=== PATIENT | male | born 1960 | race Two or more races ===

== ENCOUNTER 2018-05-21 18:50 | Inpatient (IN) | payer MEDICARE ==
[~2018-05-21] VITALS: Ht 175.3 cm; Wt 86.4 kg
[2018-05-21] MEDS ORDERED: LISINOPRIL-HCT1 EAC8 PO (18:55)
[2018-05-21] MEDS ORDERED: AMOXICILLIN500 M1 PO (18:56)
[2018-05-21] MEDS ORDERED: HUMULIN 70100 UNIT/1 SC (18:57)
[2018-05-21] MEDS ORDERED: NORVASC5 MG PO (18:57)
--- NOTE | 2018-05-21 19:07 | NUR ---
PT ARRIVED WITH UNIT OF BLOOD INFUSING THAT WAS INITIATED PRIOR TO TRANSPORT. UNIT COMPLETE AT THIS TIME. NS AT O INFUSING.
[2018-05-21 20:00] VITALS: BP 152/72
[2018-05-21] MEDS ORDERED: ZOCOR40 MG PO (20:45)
[2018-05-21] MEDS ORDERED: COREG12.5 MG PO (20:46)
[2018-05-21] MEDS ORDERED: PREVACID30 MG PO (20:46)
[2018-05-21] MEDS ORDERED: CLARITHROMYCIN500 M1 PO (20:47)
[2018-05-21 20:59] LABS: ALBUMIN 2.6 g/dL (3.4-5.0); ANION GAP 24.7 mmol/L (8-16); BILIRUBIN - TOTAL 0.24 mg/dL (0.2-1.3); CARBON DIOXIDE 16.8 mmol/L (21.0-32.0); CREATININE - SERUM 10.9 mg/dL (0.6-1.3); POTASSIUM - SERUM 5.5 mmol/L (3.5-5.1)
[2018-05-21 21:03] LABS: BASOPHILS 0.3 % (0-2); EOSINOPHILS 4.5 % (0-7); HEMATOCRIT 27.4 % (42.0-54.0); HEMOGLOBIN 8.6 g/dL (13.5-17.5); IMMATURE GRANULOCYTES 0.3 % (0-5); LYMPHOCYTES 13.1 % (15-50); MCH 28.4 pg (26.0-34.0); MCHC 31.4 g/dL (31.0-37.0); MCV 90.4 fL (80.0-100.0); MEAN PLATELET VOLUME 11.7 fL (7.4-10.4); MONOCYTES 5.8 % (2-11); PLATELET COUNT 129 10x3/uL (130-400); RBC 3.03 10x6/uL (4.20-6.10); RDW 14.6 % (11.5-14.5); WBC 6.7 10x3/uL (4.8-10.8)
[2018-05-21 21:07] LABS: CALCIUM 5.7 mg/dL (8.5-10.1)
--- NOTE | 2018-05-21 21:42 | NUR ---
SPOKE WITH LAURIE DUNAWAY, INFORMED OF CONSULT AND ELEVATED LAB VALUES, LAURIE STATED THAT SHE IS GOING TO CALL THE ANSWERING SERVICE BACK AND HAVE THE PHYSICIAN OFFICE EMPLOYEE, CALL BACK.
--- NOTE | 2018-05-21 21:48 | NUR ---
INFORMED DR SCHULZ OF CONSULT. ORDERS FOR ZOFRAN PRN FOR NAUSEA.
[2018-05-22] VITALS: BP 145/72
[2018-05-22 05:20] VITALS: BP 141/65
[2018-05-22 06:49] LABS: BASOPHILS 0.3 % (0-2); EOSINOPHILS 7.4 % (0-7); IMMATURE GRANULOCYTES 0.2 % (0-5); LYMPHOCYTES 17.1 % (15-50); MCH 28.2 pg (26.0-34.0); MCHC 31.6 g/dL (31.0-37.0); MCV 89.1 fL (80.0-100.0); MONOCYTES 7.1 % (2-11); NEUTROPHILS 67.9 % (40-80); RDW 14.6 % (11.5-14.5); WBC 6.2 10x3/uL (4.8-10.8)
[2018-05-22 06:59] LABS: HEMATOCRIT 19.6 % (42.0-54.0); HEMOGLOBIN 6.2 g/dL (13.5-17.5); PLATELET COUNT 180 10x3/uL (130-400)
[2018-05-22 07:05] LABS: ALBUMIN 2.3 g/dL (3.4-5.0); ANION GAP 22.4 mmol/L (8-16); BILIRUBIN - TOTAL 0.3 mg/dL (0.2-1.3); CARBON DIOXIDE 16.5 mmol/L (21.0-32.0); CREATININE - SERUM 10.8 mg/dL (0.6-1.3); MAGNESIUM - SERUM 2.6 mg/dL (1.8-2.4); PHOSPHOROUS 8.8 mg/dL (2.5-4.9); POTASSIUM - SERUM 4.9 mmol/L (3.5-5.1); PROTEIN - SERUM 6.3 g/dL (6.4-8.2)
[2018-05-22 07:09] LABS: CALCIUM 5.5 mg/dL (8.5-10.1)
--- NOTE | 2018-05-22 07:30 | NUR ---
ASSESSMENT COMPLETED. ALERT AND ORIENTED. DENIES ANY PAIN. UP AB ZAHRAA.TELEMERTY SHOWS SR 85. AWAITING DOCTOR. WILL MONITOR
[2018-05-22 09:17] VITALS: BP 106/55
[2018-05-22 11:10] LABS: ERYTHROCYTE SEDIMENTATION RATE 70 mm/hr (0-20)
--- NOTE | 2018-05-22 11:45 | NUR ---
BLOOD STARTED PER SARAH RN. BLOOD INFUSHING WITH NO ADVERSE REACTIONS. V/S STABLE.
[2018-05-22 11:46] VITALS: BP 162/76
[2018-05-22 12:12] VITALS: Ht 175.3 cm; Wt 86.4 kg
--- NOTE | 2018-05-22 16:52 | MORECARE ---
CASE MANAGEMENT DISCHARGE SUMMARY PATIENT: VIELKA FREEMAN UNIT: [id number] ADM DATE: 05/21/18 AGE: 57 : 64 SEX: M ROOM/BED: D.2124 AUTHOR: TIKI SANDOVAL PHYSICIAN: REFERRING PHYSICIAN: LOURDES CARRANZA MD DATE OF SERVICE: 05/22/18 Discharge Plan Patient Name: VIELKA FREEMAN [facility] [facility] 1960 Planned Disposition: Home Anticipated Discharge Date: Discharge Date: Expected LOS: Initial Reviewer: [email or web address] Initial Review Date: 05/22/2018 Generated: 05/22/18 5:52 pm Patient Name: VIELKA FREEMAN Page 38052 at 1652 All edits/amendments must be made on the electronic document DICTATION DATE: 05/22/181650 FEDERAL MEDIATION COMMISSIONER: ANABELLA 05/22/181650 RPT#: [id number] DC DATE: STATUS: ADM IN [facility] [address] [place] [address] END OF REPORT
--- NOTE | 2018-05-22 17:00 | MORECARE ---
CASE MANAGEMENT DISCHARGE SUMMARY PATIENT: VIELKA FREEMAN UNIT: [id number] ADM DATE: 05/21/18 AGE: 57 : 64 SEX: M ROOM/BED: D.2124 AUTHOR: JAIME,DOC PHYSICIAN: REFERRING PHYSICIAN: LOURDES CARRANZA MD DATE OF SERVICE: 05/22/18 Discharge Plan Patient Name: VIELKA FREEMAN Facility: [facility]:[place] : 1960 Planned Disposition: Home Anticipated Discharge Date: Discharge Date: Expected LOS: Initial Reviewer: [id number] Initial Review Date: 05/22/2018 Generated: 05/22/18 6:00 pm Comments DCP- Discharge Planning Updated by [id number]: Enzo Cabrera on 05/22/18 3:[address] Patient Name: VIELKA FREEMAN Admission Status: ER Accout number: [id number] Admission Date: 05-21-2018 : 1960 Admission Diagnosis: Attending: LOURDES CARRANZA Current LOS: 1 Anticipated DC Date: Planned Disposition: Home Primary Insurance: [facility] MEDICARE SOLUTIONS Discharge Planning Comments: CM RECEIVED ORDER TO SEE IF PT CAN QUALIFY FOR MEDICAID OR MEDICARE AND CAN BE ARRANGED FOR OUTPATIENT DIALYSIS TREATMENT. CM REVIEWED CHART, PT WAS REGISTERED WITH A MANAGED MEDICARE INSURANCE POLICY FOR COVERAGE. CM MET WITH PT IN ROOM TO DISCUSS DISCHARGE PLANNING AND NEEDS. CM OFFERED TO USE LANGUAGE LINE, PT DECLINED REPORTING SPEAKING ENOUGH GREENLAND[place] TO UNDERSTAND AND THAT HIS IF FLUENT IN [place] AND [place]. VIELKA FREEMAN provided verbal consent to discuss current and ongoing needs with/in the presence of: RICKY FREEMAN. PT REPORTS LIVING AT HOME INDEPENDENTLY WITH SPOUSE. PT HAS NO MEDICAL EQUIPMENT AND NO OUTSIDE SERVICES ASSISTING IN THE HOME. CM DISCUSSED AVAILABILITY OF HOME HEALTH, REHAB SERVICES AND MEDICAL EQUIPMENT. PT DENIES DISCHARGE NEEDS, REPORTS HIS FAMILY WILL PICK HIM UP FOR DISCHARGE HOME. PT REPORTS HAVING MEDICARE POLICY WITH [facility]. PT UNDERSTANDS THAT HE IS GOING TO HAVE TO HAVE OUTPATIENT DIALYSIS ARRANGEMENT FOR DISCHARGE HOME. PT REPORTS HAVING FAMILY TO ASSIST WITH TRANSPORT TO OUTPATIENT DIALYSIS. CM WAITING ORDERS FOR AND ARRANGEMENT OF OUTPATIENT DIALYSIS UNIT. Librarian: Enzo Cabrera DCPIA - Discharge Planning Initial Assessment Updated by [id number]: Enzo Cabrera on 05/22/18 4:54 pm * Is the patient Alert and Oriented? Yes * How many steps to enter\exit or inside your home? * PCP ELECTRONICS ENGINEERING TECHNOLOGIST KEN ODEN, [facility], [facility] * Pharmacy [facility] [place] * Preadmission Environment Home with Family * ADLs Independent * Equipment None * Other Equipment NO MEDICAL EQUIPMENT PROVIDER PREFERENCE * List name and contact numbers for known caregivers / representatives who currently or will assist patient after discharge: RICKY FREEMAN, SPOUSE, * Verbal permission to speak to the caregivers and representatives has been obtained from the patient. Yes * Community resources currently utilized None * Please name any agencies selected above. NONE * Additional services required to return to the preadmission environment? Yes * Can the patient safely return to the preadmission environment? Yes * Has this patient been hospitalized within the prior 30 days at any hospital? No Last DP export: 05/22/18 3:52 pm Patient Name: VIELKA FREEMAN Page [id number] at 1700 All edits/amendments must be made on the electronic document DICTATION DATE: 05/22/18 170 STAFFING MGR: ANABELLA 05/22/18 1700 RPT#: [id number] DC DATE: STATUS: ADM IN [facility] [address] [place] [address] END OF REPORT
--- NOTE | 2018-05-22 18:50 | NUR ---
LYING QUIETLY. PT SAYS HE FEELS BETTER AFTER BLOOD GIVEN. AT BEDSIDE
[2018-05-22 20:00] VITALS: BP 176/84
--- NOTE | 2018-05-22 20:42 | NUR ---
HS MEDS GIVEN WITH FRESH ICE WATER. BS 199, COVERED PER S/S. LACHO TRAY GIVEN FOR HS SNACK. NO OTHER NEEDS EXPRESSED AT THIS TIME.
--- NOTE | 2018-05-22 22:18 | NUR ---
BINDERY ASSISTANT AT BED SIDE, OFFERED PT SHOWER, PT DECLINED STATING THAT HE DIDNT FEEL LIKE IT RIGHT NOW. PT DENIES NEEDS, AT BED SIDE.
[2018-05-23 00:06] VITALS: BP 163/73
--- NOTE | 2018-05-23 00:25 | NUR ---
RESTING WITH EYES CLOSED, RESPERATIONS EVEN, NO S/S DISTRESS NOTED.
--- NOTE | 2018-05-23 03:41 | NUR ---
PT ASLEEP, RESP EVEN AND UNLABORED. BEDLOW AND CALL LIGHT IN REACH. NO S/S OF DISTRESS. WILL CPOC
[2018-05-23 04:00] VITALS: BP 174/75
--- NOTE | 2018-05-23 05:30 | NUR ---
DIRECT CARE SPECIALIST AT BED SIDE, OFFERED PT A BATH AGAIN, PT DECLINED AGAIN, STATING THAT HE IS TOO TIRED RIGHT NOW. DIRECT CARE SPECIALIST TOOK LINENS TO PTS ROOM AND TOLD THEM TO INFORM THE DAY SHIFT STAFF WHEN THEY ARE READY TO TAKE A SHOWER.
[2018-05-23 05:38] LABS: BASOPHILS 0.6 % (0-2); EOSINOPHILS 5.9 % (0-7); IMMATURE GRANULOCYTES 0.1 % (0-5); LYMPHOCYTES 14.1 % (15-50); MCH 28.2 pg (26.0-34.0); MCHC 32.2 g/dL (31.0-37.0); MCV 87.5 fL (80.0-100.0); MEAN PLATELET VOLUME 11.1 fL (7.4-10.4); MONOCYTES 7.5 % (2-11); NEUTROPHILS 71.8 % (40-80); PLATELET COUNT 184 10x3/uL (130-400); RDW 15.7 % (11.5-14.5); WBC 7.2 10x3/uL (4.8-10.8)
[2018-05-23 05:43] LABS: HEMATOCRIT 23.9 % (42.0-54.0); HEMOGLOBIN 7.7 g/dL (13.5-17.5); RBC 2.73 10x6/uL (4.20-6.10)
[2018-05-23 06:00] LABS: ALBUMIN 2.5 g/dL (3.4-5.0); ANION GAP 22.5 mmol/L (8-16); BILIRUBIN - TOTAL 0.42 mg/dL (0.2-1.3); CARBON DIOXIDE 17.5 mmol/L (21.0-32.0); CREATININE - SERUM 10.5 mg/dL (0.6-1.3); PROTEIN - SERUM 6.7 g/dL (6.4-8.2)
[2018-05-23 06:21] LABS: CALCIUM 5.6 mg/dL (8.5-10.1)
[2018-05-23 07:47] VITALS: BP 177/75
--- NOTE | 2018-05-23 08:19 | NUR ---
AM ROUNDS COMPLETED. INTRODUCED MYSELF TO PT PRIMARY RN FOR TODAYS SHIFT. PT IS A&O SITTING UP IN BED RESTING QUIETLY WITH AT BEDSIDE. PTS STATES THEY HAD AN "OKAY" NIGHT BUT ITS HARD FOR THEM TO SLEEP IN HERE. PT HAS A LANGUAGE BARRIER BUT COMMUNICATES FOR HIM. NO CURRENT NEEDS AT THIS TIME. THEY ARE INQUIRING ABOUT DISCHARGE WILL LOOK AT ORDERS AND CTM. CL IN REACH, BED IN LOWEST, SIDE RAILS X2. WILL CTM.
--- NOTE | 2018-05-23 09:00 | NUR ---
COLLECTED PTS URINE ORDERED AND SENT TO LAB. PT SITTING UP IN BED RESTING QUIETLY AND INQUIRING ABOUT POSSIBLE DISCHARGE. WILL DISCUSS WITH PRIMARY AND FIND OUT. PT VOICED THANKS NO FURTHER NEEDS AT THIS TIME. WILL CTM.
[2018-05-23 09:26] LABS: APPEARANCE CLEAR (CLEAR); BILIRUBIN NEGATIVE (NEGATIVE); COLOR YELLOW (YELLOW); GLUCOSE NEGATIVE (NEGATIVE); KETONE NEGATIVE (NEGATIVE); NITRITE NEGATIVE (NEGATIVE); PROTEIN 3+ mg/dL (NEGATIVE); SPECIFIC GRAVITY 1.015 (1.005-1.020); UROBILINOGEN NORMAL (NORMAL)
[2018-05-23 09:27] LABS: AMORPHOUS SEDIMENT <1+ /lpf (NONE SEEN); BACTERIA FEW /hpf (NONE SEEN); EPITHELIAL CELLS 0-5 /hpf (0-5); RED CELLS - URINE RARE /hpf (0-5); WHITE CELLS - URINE 0-5 /hpf (0-5)
[2018-05-23 09:29] LABS: CREATININE - URINE 69.4 mg/dL (30-125); PRO/CRE RATIO URINE 3.9 mg/g; PROTEIN - URINE 271.2 mg/dL (0.0-11.9)
--- NOTE | 2018-05-23 10:48 | NUR ---
AT BEDSIDE ROUNDING ON PT. PT AND ARE WANTING TO BE DISCHARGED. DISCUSSED WITH PT THAT HE CAN BE DISCHARGED HOWEVER WILL NEED TEACHING ON A LOW POTASSIUM DIET. PT ALSO VERBALIZED UNDERSTANDING THAT CRITICAL HIGH POTASSIUM LEVELS COULD BE FATAL HOWEVER THEY ARENT INTERESTED IN DIALYSIS BUT THEY ARE WILLING TO TRY MEDICATIONS AND/OR DIET MODIFICATIONS. NO CURRENT NEEDS AT THIS TIME. WILL DISCUSS WITH PRIMARY ABOUT DISCHARGING AND CPOC.
[2018-05-23] MEDS ORDERED: SODIUM BICARBO650 MG PO (11:01)
[2018-05-23 11:10] VITALS: BP 167/77
--- NOTE | 2018-05-23 12:02 | NUR ---
PTS DAUGHTER CALLED INQUIRING ABOUT IF PT WAS BEING DISCHARGED OR NOT. DISCUSSED WITH HER AND HE WILL BE DISCHARGED. SHE LIVES IN [place] AND WILL HEAD THIS WAY SHORTLY. NO CURRENT NEEDS AT THIS TIME. WILL BEGIN DISCHARGE WORKUP.
--- NOTE | 2018-05-23 12:36 | MORECARE ---
CASE MANAGEMENT DISCHARGE SUMMARY PATIENT: VIELKA FREEMAN UNIT: [id number] ADM DATE: 05/21/18 AGE: 57 : 64 SEX: M ROOM/BED: D.2124 AUTHOR: JAIMEDOC PHYSICIAN: REFERRING PHYSICIAN: LOURDES CARRANZA MD DATE OF SERVICE: 05/23/18 Discharge Plan Patient Name: VIELKA FREEMAN Facility: [facility]:[place] : 1960 Planned Disposition: Home Anticipated Discharge Date: Discharge Date: Expected LOS: Initial Reviewer: [id number] Initial Review Date: 05/22/2018 Generated: 05/23/18 1:36 pm Comments DCP- Discharge Planning Updated by [id number]: Megha Puente on 05/23/18 11:[address] BUTT TO OUR DESK ASKING FOR US TO FILL O [facility] PAPERWORK FOR THE PATIENTS . HE STATED THAT HER PCP WOULD NOT. I COMPLETED THE PAPERWORK IN REGARDS TO THE REASON HE WAS HERE AND A COPY HAS BEEN PLACED IN HIS CHART WITH THE ORIGINAL BEING GIVEN TO THE PATIENTS . I ALSO GAVE HER A NOTE SHOWING THAT SHE WAS HERE WITH THE PATIENT. SHE GOT UPSET WHEN I RETURNED THE PAPERS TO HER. SHE STATED SHE HAS MISSED A LOT OF WORK LATELY AND HAS SO MANY POINTS SHE COULD LOOSE HER JOB. SHE STATED THAT HE WAS OUT 3 WEEKS BEFORE COMING HERE BECAUSE OF THE FLU. SHE SAID HE IS LEGALLY BLIND AND CANNOT DRIVE, SO SHE WILL HAVE TO KEEP MISSING WORK TO TAKE CARE OF HIM AND DRIVE HIM TO ALL HIS APPOINTMENTS, AND SHE NEEDS PAPERS TO EXPLAIN THIS FOR HER JOB. I EXPLAINED THAT THAT IS WHY WE ENCOURAGE THEM TO HAVE THEIR PCP FILL IT OUT AND WE USUALLY DO NOT DO IT. SHE STATED THAT THEIR DOCTOR WOULD NOT DO IT BECAUSE THEY HAVE NOT SEEN THEM IN OVER A YEAR. I EXPLAINED THAT LEGALLY WE CAN ONLY DOCUMENT ABOUT WHAT WE TREATED HIM FOR AND THE DAYS HE WAS GETTING TREATMENT HERE. EXPLAINED THAT WE COULD NOT GIVE HER AN EXCUSE FOR WORK FOR TREATMENT THAT HE DID NOT RECEIVE HERE OR WITH THE CURRENT DOCTORS. (NOTE THAT DURING THIS CONVERSATION WITH HER, THE PATIENT DID NOTHING BUT SPEAK ARMEN[place], BUT I FELT HE UNDERSTOOD ME BECAUSE OF WHEN HE INTERRUPTED MY SPEACH). THE THEN ASKED WHAT SHE WAS GOING TO DO IF SHE LOST HER JOB. I APOLOGIZED TO HER, BUT EXPLAINED THAT IT WOULD BE FRAUD FOR ME TO DOCUMENT THAT HE RECEIVED CARE ANYWHERE ELSE BUT HERE BECAUSE HE WAS NOT TREATED BY US AND BY DOING THAT I COULD LOOSE MY JOB AND THE DOCTOR WHO SIGNED THE PAPERWORK (DR BUTT) COULD ALSO GET IN TROUBLE. AT THIS TIME THE PATIENT TOLD ME IN [place] THAT I NEEDED TO GET HIM SOME ICE WATER. ALL CONVERSATION ENDED HERE AND I WENT TO GET HIM ICE WATER. I EXPLAINED TO PAMELA SMITH APN WHAT THE WAS EXPECTING US TO DO AND THAT I DID NOT DO IT AND THAT SHE IS UPSET OVER IT AND PAMELA STATED THAT WE COULD NOT DOCUMENT ON CARE WE DID NOT PROVIDE. I EXPLAINED TO GRETTA, DISCHARGE CASEMANAGER ABOUT THE CONVERSATION IN THE ROOM. HE STATED PER HIS PREVIOUS CONVERSATION WITH THEM, THE ONLY WORKS ON MONDAY AND SUNDAYS AND WITH THAT INFORMATION, SHE WOULD ALREADY BE OFF TO DRIVE HIM TO HIS APPOINTMENT. DCP- Discharge Planning Updated by [id number]: Enzo Cabrera on 05/22/18 3:[address] Patient Name: VIELKA FREEMAN Admission Status: ER Accout number: [id number] Admission Date: 05-21-2018 : 1960 Admission Diagnosis: Attending: LOURDES CARRANZA Current LOS: 1 Anticipated DC Date: Planned Disposition: Home Primary Insurance: [facility] MEDICARE SOLUTIONS Discharge Planning Comments: CM RECEIVED ORDER TO SEE IF PT CAN QUALIFY FOR MEDICAID OR MEDICARE AND CAN BE ARRANGED FOR OUTPATIENT DIALYSIS TREATMENT. CM REVIEWED CHART, PT WAS REGISTERED WITH A MANAGED MEDICARE INSURANCE POLICY FOR COVERAGE. CM MET WITH PT IN ROOM TO DISCUSS DISCHARGE PLANNING AND NEEDS. CM OFFERED TO USE LANGUAGE LINE, PT DECLINED REPORTING SPEAKING ENOUGH [place] TO UNDERSTAND AND THAT HIS IF FLUENT IN [place] AND [place]. VIELKA FREEMAN provided verbal consent to discuss current and ongoing needs with/in the presence of: RICKY FREEMAN. PT REPORTS LIVING AT HOME INDEPENDENTLY WITH SPOUSE. PT HAS NO MEDICAL EQUIPMENT AND NO OUTSIDE SERVICES ASSISTING IN THE HOME. CM DISCUSSED AVAILABILITY OF HOME HEALTH, REHAB SERVICES AND MEDICAL EQUIPMENT. PT DENIES DISCHARGE NEEDS, REPORTS HIS FAMILY WILL PICK HIM UP FOR DISCHARGE HOME. PT REPORTS HAVING MEDICARE POLICY WITH [facility]. PT UNDERSTANDS THAT HE IS GOING TO HAVE TO HAVE OUTPATIENT DIALYSIS ARRANGEMENT FOR DISCHARGE HOME. PT REPORTS HAVING FAMILY TO ASSIST WITH TRANSPORT TO OUTPATIENT DIALYSIS. CM WAITING ORDERS FOR AND ARRANGEMENT OF OUTPATIENT DIALYSIS UNIT. Assembler [employer] Group: Enzo Cabrera DCPIA - Discharge Planning Initial Assessment Updated by [id number]: Enzo Cabrera on 05/22/18 4:54 pm * Is the patient Alert and Oriented? Yes * How many steps to enter\exit or inside your home? * PCP PC TECHNICIAN KEN ODEN, [facility] * Pharmacy [facility] IN [place] * Preadmission Environment Home with Family * ADLs Independent * Equipment None * Other Equipment NO MEDICAL EQUIPMENT PROVIDER PREFERENCE * List name and contact numbers for known caregivers / representatives who currently or will assist patient after discharge: RICKY FREEMAN, SPOUSE, * Verbal permission to speak to the caregivers and representatives has been obtained from the patient. Yes * Community resources currently utilized None * Please name any agencies selected above. NONE * Additional services required to return to the preadmission environment? Yes * Can the patient safely return to the preadmission environment? Yes * Has this patient been hospitalized within the prior 30 days at any hospital? No Last DP export: 05/22/18 4:00 pm Patient Name: VIELKA FREEMAN Page [id number] at 1236 All edits/amendments must be made on the electronic document DICTATION DATE: 05/23/18 1236 PACKAGING LINE OPERATOR: ANABELLA 05/23/18 1236 RPT#: [id number] DC DATE: STATUS: ADM IN [facility] [address] [place] [address] END OF REPORT
--- NOTE | 2018-05-23 13:20 | NUR ---
PAGED PHARMACY PT STILL HAS NOT REC'D HIS VELTASSA. THEY STATE IT WILL BE ON ITS WAY. WILL CTM AND WAIT ON IT. 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 STILL WAITING TO BE SEEN BY A SURGICAL INSTRUMENT REPAIR SPECIALIST. NO IMMEDIATE NEEDS. WILL CTM.
--- NOTE | 2018-05-23 14:48 | NUR ---
Nutrition education for Renal ADA diet: Provided pt and with diet education. Answered all questions. Provided printed diet information.
--- NOTE | 2018-05-23 14:59 | MORECARE ---
CASE MANAGEMENT DISCHARGE SUMMARY PATIENT: VIELKA FREEMAN UNIT: [id number] ADM DATE: 05/21/18 AGE: 57 : 64 SEX: M ROOM/BED: D.2124 AUTHOR: JAIMEDOC PHYSICIAN: REFERRING PHYSICIAN: LOURDES CARRANZA MD DATE OF SERVICE: 05/23/18 Discharge Plan Patient Name: VIELKA FREEMAN Facility: [facility]:[place] : 1960 Planned Disposition: Home Anticipated Discharge Date: 05/23/18 Discharge Date: Expected LOS: 2 Initial Reviewer: [email or web address] Initial Review Date: 05/22/2018 Generated: 05/23/18 3:58 pm Comments DCP- Discharge Planning Updated by [id number]: Enzo Cabrera on 05/23/18 1:[address] Patient Name: VIELKA FREEMAN Encounter No: [id number] : 1960 Primary Insurance: [facility] MEDICARE SOLUTIONS Anticipated DC Date: 05-23-2018 Planned Disposition: Home DCP follow-up note: CM MET WITH PT IN ROOM TO DISCUSS DISCHARGE NEEDS AND PLANNING. CM DISCUSSED AVAILABILITY OF HOME HEALTH, REHAB SERVICES AND MEDICAL EQUIPMENT. PT DENIES DISCHARGE NEEDS. FAMILY TO TRANSPORT HOME AT DISCHARGE. IMPORTANT MESSAGE FROM MEDICARE PROVIDED AND EXPLAINED. WATCH CRYSTAL EDGE GRINDER NURSE NOTIFIED. Enzo Cabrera, CASE MANAGEMENT DCP- Discharge Planning Updated by [id number]: Megha Puente on 05/23/18 11:[address] BUTT TO OUR DESK ASKING FOR US TO FILL O [facility] PAPERWORK FOR THE PATIENTS . HE STATED THAT HER PCP WOULD NOT. I COMPLETED THE PAPERWORK IN REGARDS TO THE REASON HE WAS HERE AND A COPY HAS BEEN PLACED IN HIS CHART WITH THE ORIGINAL BEING GIVEN TO THE PATIENTS . I ALSO GAVE HER A NOTE SHOWING THAT SHE WAS HERE WITH THE PATIENT. SHE GOT UPSET WHEN I RETURNED THE PAPERS TO HER. SHE STATED SHE HAS MISSED A LOT OF WORK LATELY AND HAS SO MANY POINTS SHE COULD LOOSE HER JOB. SHE STATED THAT HE WAS OUT 3 WEEKS BEFORE COMING HERE BECAUSE OF THE FLU. SHE SAID HE IS LEGALLY BLIND AND CANNOT DRIVE, SO SHE WILL HAVE TO KEEP MISSING WORK TO TAKE CARE OF HIM AND DRIVE HIM TO ALL HIS APPOINTMENTS, AND SHE NEEDS PAPERS TO EXPLAIN THIS FOR HER JOB. I EXPLAINED THAT THAT IS WHY WE ENCOURAGE THEM TO HAVE THEIR PCP FILL IT OUT AND WE USUALLY DO NOT DO IT. SHE STATED THAT THEIR DOCTOR WOULD NOT DO IT BECAUSE THEY HAVE NOT SEEN THEM IN OVER A YEAR. I EXPLAINED THAT LEGALLY WE CAN ONLY DOCUMENT ABOUT WHAT WE TREATED HIM FOR AND THE DAYS HE WAS GETTING TREATMENT HERE. EXPLAINED THAT WE COULD NOT GIVE HER AN EXCUSE FOR WORK FOR TREATMENT THAT HE DID NOT RECEIVE HERE OR WITH THE CURRENT DOCTORS. (NOTE THAT DURING THIS CONVERSATION WITH HER, THE PATIENT DID NOTHING BUT SPEAK [place], BUT I FELT HE UNDERSTOOD ME BECAUSE OF WHEN HE INTERRUPTED MY SPEACH). THE THEN ASKED WHAT SHE WAS GOING TO DO IF SHE LOST HER JOB. I APOLOGIZED TO HER, BUT EXPLAINED THAT IT WOULD BE FRAUD FOR ME TO DOCUMENT THAT HE RECEIVED CARE ANYWHERE ELSE BUT HERE BECAUSE HE WAS NOT TREATED BY US AND BY DOING THAT I COULD LOOSE MY JOB AND THE DOCTOR WHO SIGNED THE PAPERWORK (DR BUTT) COULD ALSO GET IN TROUBLE. AT THIS TIME THE PATIENT TOLD ME IN VIETNAMESE THAT I NEEDED TO GET HIM SOME ICE WATER. ALL CONVERSATION ENDED HERE AND I WENT TO GET HIM ICE WATER. I EXPLAINED TO PAMELA SMITH APN WHAT THE WAS EXPECTING US TO DO AND THAT I DID NOT DO IT AND THAT SHE IS UPSET OVER IT AND PAMELA STATED THAT WE COULD NOT DOCUMENT ON CARE WE DID NOT PROVIDE. I EXPLAINED TO GRETTA, MAYURI CASEMANAGER ABOUT THE CONVERSATION IN THE ROOM. HE STATED PER HIS PREVIOUS CONVERSATION WITH THEM, THE ONLY WORKS ON MONDAY AND SUNDAYS AND WITH THAT INFORMATION, SHE WOULD ALREADY BE OFF TO DRIVE HIM TO HIS APPOINTMENT. DCP- Discharge Planning Updated by [id number]: Enzo Cabrera on 05/22/18 3:[address] Patient Name: VIELKA FREEMAN Admission Status: ER Accout number: [id number] Admission Date: 05-21-2018 : 1960 Admission Diagnosis: Attending: LOURDES CARRANZA Current LOS: 1 Anticipated DC Date: Planned Disposition: Home Primary Insurance: [facility] MEDICARE SOLUTIONS Discharge Planning Comments: CM RECEIVED ORDER TO SEE IF PT CAN QUALIFY FOR MEDICAID OR MEDICARE AND CAN BE ARRANGED FOR OUTPATIENT DIALYSIS TREATMENT. CM REVIEWED CHART, PT WAS REGISTERED WITH A MANAGED MEDICARE INSURANCE POLICY FOR COVERAGE. CM MET WITH PT IN ROOM TO DISCUSS DISCHARGE PLANNING AND NEEDS. CM OFFERED TO USE LANGUAGE LINE, PT DECLINED REPORTING SPEAKING ENOUGH VIETNAMESE TO UNDERSTAND AND THAT HIS IF FLUENT IN [place] AND [place]ET[place]ESE. VIELKA FREEMAN provided verbal consent to discuss current and ongoing needs with/in the presence of: RICKY FREEMAN. PT REPORTS LIVING AT HOME INDEPENDENTLY WITH SPOUSE. PT HAS NO MEDICAL EQUIPMENT AND NO OUTSIDE SERVICES ASSISTING IN THE HOME. CM DISCUSSED AVAILABILITY OF HOME HEALTH, REHAB SERVICES AND MEDICAL EQUIPMENT. PT DENIES DISCHARGE NEEDS, REPORTS HIS FAMILY WILL PICK HIM UP FOR DISCHARGE HOME. PT REPORTS HAVING MEDICARE POLICY WITH [facility]. PT UNDERSTANDS THAT HE IS GOING TO HAVE TO HAVE OUTPATIENT DIALYSIS ARRANGEMENT FOR DISCHARGE HOME. PT REPORTS HAVING FAMILY TO ASSIST WITH TRANSPORT TO OUTPATIENT DIALYSIS. CM WAITING ORDERS FOR AND ARRANGEMENT OF OUTPATIENT DIALYSIS UNIT. Online Merchandising Coordinator: Enzo Cabrera DCPIA - Discharge Planning Initial Assessment Updated by [email or web address]: Enzo Cabrera on 05/22/18 4:54 pm * Is the patient Alert and Oriented? Yes * How many steps to enter\exit or inside your home? * PCP SPIKE MAKER KEN ODEN, [facility] * Pharmacy [facility] IN [place] * Preadmission Environment Home with Family * ADLs Independent * Equipment None * Other Equipment NO MEDICAL EQUIPMENT PROVIDER PREFERENCE * List name and contact numbers for known caregivers / representatives who currently or will assist patient after discharge: RICKY FREEMAN, SPOUSE, * Verbal permission to speak to the caregivers and representatives has been obtained from the patient. Yes * Community resources currently utilized None * Please name any agencies selected above. NONE * Additional services required to return to the preadmission environment? Yes * Can the patient safely return to the preadmission environment? Yes * Has this patient been hospitalized within the prior 30 days at any hospital? No Coverage Notice Reviewer: [id number] - Enzo Cabrera Notice Issued Date-Time: 05/23/2018 12:50 Notice Type: IM Discharge Notice Notice Delivered To: Patient Relationship to Patient: Seal Mixer Name: Delivery Method: HAND - Hand Delivered Angela Days: Prior Verbal Notification: Recipient Understood Notice: Yes Recipient Signature: Yes Med Rec Note Co-signed by Attending: Coverage Notice Comment: Last DP export: 05/23/18 11:36 am Patient Name: VIELKA FREEMAN Page [id number] at 1459 All edits/amendments must be made on the electronic document DICTATION DATE: 05/23/181457 LAMINATING MACHINE OPERATOR HELPER: ANABELLA 05/23/181457 RPT#: [id number] DC DATE: STATUS: ADM IN [facility] [address] [place] [address] END OF REPORT
--- NOTE | 2018-05-23 15:13 | NUR ---
DISCHARGE TEACHING PROVIDED AND PAPERS SIGNED PT AND VERBALIZED UNDERSTANDING AND DENIES ANY QUESTIONS OR CONCERNS. ALL BELONGINGS COLLECTED AND BAGGED FOR PT. D/C PTS L.AC PIV WITH CATHETER TIP FULLY INTACT. RETURNED TELEMETRY TO [employer] KEVIN. MEATCUTTER ROUNDED AND DISCUSSED DIET IN GREAT DETAIL AND LENGTH WITH PT. PT VERBALIZED UNDERSTANDING. THEY ARE CURRENTLY WAITING ON THEIR DAUGHTER FOR TRANSPORTATION. NO CURRENT NEEDS. WILL CTM.
--- NOTE | 2018-05-23 17:43 | NUR ---
PTS FAMILY HERE FOR TRANSPORTATION. PT HAS ALL BELONGINGS AND IS READY TO LEAVE. BEING ESCORTED NOW. NO FURTHER NEEDS.
[2018-05-24 08:20] LABS: SPE - A/G RATIO 0.8 (0.7-1.7); SPE - ALBUMIN 2.7 g/dL (2.9-4.4); SPE - ALPHA-1 GLOBULIN 0.3 g/dL (0.0-0.4); SPE - ALPHA-2 GLOBULIN 0.8 g/dL (0.4-1.0); SPE - GAMMA GLOBULIN 1.1 g/dL (0.4-1.8); SPE - M-SPIKE Not Observed g/dL (Not Observed); SPE - TOTAL PROTEIN 5.9 g/dL (6.0-8.5)
[2018-05-24 16:12] LABS: UPE RAND - ALBUMIN 51.7 % (()); UPE RAND - ALPHA 2 GLOBULIN 11.3 % (()); UPE RAND - BETA GLOBULIN 17.5 % (()); UPE RAND - GAMMA GLOBULIN 16.5 % (())
== END 2018-05-23 17:44 | disposition home or self-care (01) | DRG 640 ==
LOC: D.ER 18:50 → D.M2 20:09
PROVIDERS: Family Medicine; Internal Medicine Nephrology; ADMIT Family Medicine
DX: E87.5 Hyperkalemia (principal); N18.6 End stage renal disease; I12.0 Hypertensive chronic kidney disease with stage 5 chronic kidney disease or end stage renal disease; E11.22 Type 2 diabetes mellitus with diabetic chronic kidney disease; D63.1 Anemia in chronic kidney disease; N25.0 Renal osteodystrophy; E83.51 Hypocalcemia